=== PATIENT | female | born 1960 | race Caucasian/White ===

== ENCOUNTER 2019-06-16 12:30 | Observation (INO) ==
--- NOTE | 2019-06-16 12:46 | Emergency Department Note ---
Disposition Clinical Impression: Chest pain Qualifiers: Chest pain type: unspecified Qualified Code(s): R07.9 - Chest pain, unspecified Disposition: Admitted As Inpatient Condition: Good Time of Disposition: 15:34 General Adult HPI - General Chief complaint: ED Chest Pain Stated complaint: CP/Swelling Time Seen by Provider: 06/16/19 12:45 Source: patient Mode of arrival: ambulatory Limitations: no limitations Nursing Notes Reviewed: Yes Vital Signs Reviewed: Yes - History of Present Illness HPI Narrative: Patient is a 58-year-old female with past medical history of hypertension, hyperlipidemia, COPD, asthma who presents with chest pain and lower extremity swelling and shortness of breath. Patient reports that the symptoms began 2 months ago when her primary care provider changed her insulin medication. Says that this is when her shortness of breath started. 2 weeks ago she started having intermittent chest pain is located near her left shoulder radiates to her jaw and down her left arm. It is associated with some numbness and tingling. Symptoms worsen with exertion but do not always resolved with rest. I does not worsen with inspiration or expiration. She denies any coughing, wheezing, sputum production. Denies any nausea, vomiting, fevers, chills. Denies any history of recent travel, recent surgeries, hormone use. She has never had any blood clots before. She is not on any anticoagulation. Also mentions bilateral lower extremity swelling worse in the left compared to the right. Also endorses some calf cramping. - Related Data Home Medications Medication Instructions Recorded Confirmed Atorvastatin [Lipitor] 40 mg PO HS 06/16/19 06/16/19 Cyclobenzaprine [Flexeril] 10 mg PO BID 06/16/19 06/16/19 Levothyroxine [Synthroid] 100 mcg PO QDPC 06/16/19 06/16/19 Lisinopril [Zestril] 20 mg PO DAILY 06/16/19 06/16/19 Omeprazole [PriLOSEC] 20 mg PO DAILY 06/16/19 06/16/19 Pregabalin [Lyrica] 150 mg PO QDPC 06/16/19 06/16/19 Tramadol HCl [Ultram] 50 mg PO TID PRN 06/16/19 06/16/19 amLODIPine [Norvasc] 2.5 mg PO QDPC 06/16/19 06/16/19 Allergies Allergy/AdvReac Type Severity Reaction Status Date / Time acetaminophen [From Vicodin] AdvReac Hallucinati Verified 12/30/18 14:00 ng aspirin AdvReac See Verified 12/30/18 14:00 Comments celecoxib [From Celebrex] AdvReac Swelling Verified 12/30/18 14:00 of Lip/Tongue/Throat codeine AdvReac Anaphylaxis Verified 12/30/18 14:00 fentanyl AdvReac Vomiting Verified 12/30/18 14:00 hydrocodone [From Vicodin] AdvReac Hallucinati Verified 12/30/18 14:00 ng naproxen AdvReac See Verified 12/30/18 14:00 Comments NSAIDS (Non-Steroidal AdvReac See Verified 12/30/18 14:00 Anti-Inflamma Comments Penicillins AdvReac Rash Verified 12/30/18 14:00 All systems ED: reviewed and negative except as stated. Review of Systems: As Per HPI Constitutional: Denies: fever, chills, weakness Eyes: Denies: eye pain, eye discharge, vision change ENT ED: Denies: ear pain, throat pain, dental pain Cardiovascular: Reports: chest pain, dyspnea on exertion. Denies: palpitations, edema, syncope Respiratory: Denies: cough, dyspnea, wheezes Gastrointestinal: Denies: abdominal pain, nausea, vomiting Genitourinary: Denies: urgency, dysuria, frequency Musculoskeletal: Denies: back pain, neck pain, joint swelling Integumentary: Denies: rash, abrasion, lesions Neurological: Denies: headache, weakness, numbness Psychiatric: Denies: anxiety, depression, suicidal thoughts Endocrine: Denies: fatigue, polydipsia, polyuria Past Medical History - Past Medical History Attestation: Yes The following information was validated with the patient. Source: patient Physical Exam - General Limitations: no limitations General appearance: alert, in no apparent distress - Head Head exam: atraumatic, normocephalic, normal inspection - Eye Eye exam: Present: normal appearance, PERRL, EOMI - ENT ENT exam: normal exam, normal oropharynx, mucous membranes moist - Neck Neck exam: Present: normal inspection, full ROM, trachea midline - Chest Chest inspection: Present: normal inspection, symmetric chest wall rise - Respiratory Respiratory exam: Present: normal lung sounds bilaterally - Cardiovascular Cardiovascular exam: Present: regular rate, normal rhythm, normal heart sounds - Abdominal Exam Abdominal exam: Present: soft (Large hernia noted), Non-Tender. Absent: tenderness, distention, guarding, rebound, rigidity - Extremities Exam Extremities exam: Present: normal inspection, full ROM, pedal edema (1+ pitting edema of both extremities slightly worse in left compared to right, tender to palpation over anterior shins). Absent: tenderness - Back Exam Back exam: Present: normal inspection, full ROM. Absent: tenderness - Neurological Exam Neurological exam: Present: alert, oriented X3 - Psychiatric Psychiatric exam: Present: normal affect, normal mood - Skin Skin exam: Present: warm, dry, intact, normal color Course Course Narrative: She was seen and examined. Vitals are stable within normal limits. Exam was notable for lower extremity swelling later exam in the left compared to right. Patient was ordered CBC, CMP, troponin, BNP, chest x-ray, EKG. Patient was given 20 mg Lasix. D-dimer and bilateral DVT ultrasound was obtained. Vital Signs Temperature 98.2 F 06/16/19 12:44 Pulse Rate 85 06/16/19 12:44 Respiratory Rate 18 06/16/19 12:44 Blood Pressure 139/67 06/16/19 12:44 O2 Sat by Pulse Oximetry 100 06/16/19 12:44 Temperature 98.2 F 06/16/19 12:44 Pulse Rate 88 06/16/19 15:05 Respiratory Rate 18 06/16/19 15:05 Blood Pressure 126/71 06/16/19 15:05 O2 Sat by Pulse Oximetry 100 06/16/19 15:05 Oxygen Delivery Oxygen Delivery Room Air Medical Decision Making - [facility] Narrative Medical decision making narrative: She is a 58-year-old female who presents with chest pain and lower extremity swelling. The differential includes but is not limited to GA, ACS, DVT/PE, pneumonia, costochondritis, COPD exacerbation. Patient's initial EKG was normal with a negative troponin. This makes GA/ACS less likely. Patient also had a negative d-dimer and DVT ultrasound study making DVT/PE less likely. Chest x- ray showed no focal consolidation or interstitial infiltrates making pneumonia less likely. Plan was discussed with patient and the patient would like to be admitted for further assessment given her cardiac risk factors. She has a heart score of 4. She was communicated to the hospitalist and she was accepted for admission for chest pain rule out. - Medical Records Medical records reviewed: Yes I reviewed the patient's medical records. - Lab Data Lab results reviewed: Yes I reviewed the patient's lab results. Result diagrams: 06/16/19 12:45 06/16/19 12:45 Lab Results 06/16/19 06/16/19 06/16/19 Range/Units 12:45 12:45 12:45 WBC 6.6 (4.3-11.1) K/mcL RBC 4.36 (3.82-4.97) M/mcL Hgb 12.3 (11.5-15.4) g/dL Hct 37.1 (35.3-44.9) % MCV 85.1 (83.0-100.0) fL MCH 28.2 (28.0-33.3) pg MCHC 33.2 (31.6-35.5) g/dL RDW 14.6 H (11.5-14.5) % Plt Count 143 (140-400) K/mcL MPV 9.8 (9.4-12.4) fL D-Dimer (0-500) ng/mLFEU Sodium 143 (136-145) mEq/L Potassium 3.9 (3.5-5.1) mEq/L Chloride 106 (98-107) mEq/L Carbon Dioxide 27 (23-29) mEq/L BUN 11 (8-23) mg/dL Creatinine 0.73 (0.60-1.20) mg/dL Est GFR ( Amer) > 60 (> 60) Est GFR (Non-Af Amer) > 60 (> 60) BUN/Creatinine Ratio 15 (6-26) Glucose 100 (70-105) mg/dL Calculated Osmolality 295 (280-300) Calcium 9.5 (8.6-10.3) mg/dL Total Bilirubin 0.8 (0.3-1.0) mg/dL AST 38 (13-39) Units/L ALT 25 (7-52) Units/L Alkaline Phosphatase 129 H (34-104) Units/L Troponin I < 0.03 (< 0.04) ng/mL B-Natriuretic Peptide 30 (Less than 100) pg/mL Serum Total Protein 6.3 L (6.4-8.9) g/dL Albumin 3.5 (3.5-5.7) g/dL Globulin 2.8 (2.4-3.5) g/dL Albumin/Globulin Ratio 1.3 (1.1-2.2) 06/16/19 Range/Units 12:45 WBC (4.3-11.1) K/mcL RBC (3.82-4.97) M/mcL Hgb (11.5-15.4) g/dL Hct (35.3-44.9) % MCV (83.0-100.0) fL MCH (28.0-33.3) pg MCHC (31.6-35.5) g/dL RDW (11.5-14.5) % Plt Count (140-400) K/mcL MPV (9.4-12.4) fL D-Dimer 313 (0-500) ng/mLFEU Sodium (136-145) mEq/L Potassium (3.5-5.1) mEq/L Chloride (98-107) mEq/L Carbon Dioxide (23-29) mEq/L BUN (8-23) mg/dL Creatinine (0.60-1.20) mg/dL Est GFR ( Amer) (> 60) Est GFR (Non-Af Amer) (> 60) BUN/Creatinine Ratio (6-26) Glucose (70-105) mg/dL Calculated Osmolality (280-300) Calcium (8.6-10.3) mg/dL Total Bilirubin (0.3-1.0) mg/dL AST (13-39) Units/L ALT (7-52) Units/L Alkaline Phosphatase (34-104) Units/L Troponin I (< 0.04) ng/mL B-Natriuretic Peptide (Less than 100) pg/mL Serum Total Protein (6.4-8.9) g/dL Albumin (3.5-5.7) g/dL Globulin (2.4-3.5) g/dL Albumin/Globulin Ratio (1.1-2.2) - Radiology Data Radiology results reviewed: Yes I reviewed the patient's radiology results. Chest X-Ray 06/16/19 12:58 IMPRESSION: No acute cardiopulmonary process D/ / 06/16/2019 13:23:11 Chris Ellis MD / courtney Interpreting Provider: Chris Ellis MD - EKG Data EKG #1 EKG attestation: Yes I reviewed and interpreted this EKG. EKG results narrative: EKG obtained today showed normal sinus rhythm, normal intervals, no axis deviation, no hypertrophy, no ST elevations or depressions, no T-wave inversions. Attestation Statement - Attestation Attestation: I have seen this patient with the resident physician, I have personally evaluated this patient. I had reviewed the chart and document dictation by the resident physician and aM in agreement with the information documented by the resident physician. Please see documentation by the resident physician for complete chart including past medical history, family medical history, review of systems, current history and physical and laboratory and imaging studies. I was present for all procedures, provided direct supervision for all procedures, was present for the entirety of all procedures and provided direct guidance during the procedures. Please see documentation by the resident physician for any procedures performed. I have reviewed all interpretations of EKGs, and reviewed all EKGs performed on patient's as well. I have also reviewed reports of imaging as provided by radiology.
[2019-06-16 13:09] LABS: Hematocrit 37.1 % (35.3-44.9); Hemoglobin 12.3 g/dL (11.5-15.4); Mean Corpuscular HGB Conc 33.2 g/dL (31.6-35.5); Mean Corpuscular Hemoglobin 28.2 pg (28.0-33.3); Mean Corpuscular Volume 85.1 fL (83.0-100.0); Mean Platelet Volume 9.8 fL (9.4-12.4); Platelet Count 143 K/mcL (140-400); Red Blood Count 4.36 M/mcL (3.82-4.97); Red Cell Distribution Width 14.6 % (11.5-14.5); White Blood Count 6.6 K/mcL (4.3-11.1)
[2019-06-16] MEDS ORDERED: Nitroglycerin 0.4 MG TAB.SUBL SL ONE (13:19)
[2019-06-16] MEDS ORDERED: Furosemide 40 MG TABLET PO ONE (13:29)
--- NOTE | 2019-06-16 13:33 | Emergency Department Note ---
Disposition Clinical Impression: Chest pain Disposition: Still a Patient Condition: Fair Forms: ED Satisfaction Letter Time of Disposition: 13:33 Chest Pain HPI - General Chief Complaint: ED Chest Pain Stated Complaint: CP/Swelling Time Seen by Provider: 06/16/19 12:45 Source: patient Mode of arrival: ambulatory Limitations: no limitations - History of Present Illness Severity scale (1-10): 8 - Related Data Allergies Allergy/AdvReac Type Severity Reaction Status Date / Time acetaminophen [From Vicodin] AdvReac Hallucinati Verified 12/30/18 14:00 ng aspirin AdvReac See Verified 12/30/18 14:00 Comments celecoxib [From Celebrex] AdvReac Swelling Verified 12/30/18 14:00 of Lip/Tongue/Throat codeine AdvReac Anaphylaxis Verified 12/30/18 14:00 fentanyl AdvReac Vomiting Verified 12/30/18 14:00 hydrocodone [From Vicodin] AdvReac Hallucinati Verified 12/30/18 14:00 ng naproxen AdvReac See Verified 12/30/18 14:00 Comments NSAIDS (Non-Steroidal AdvReac See Verified 12/30/18 14:00 Anti-Inflamma Comments Penicillins AdvReac Rash Verified 12/30/18 14:00 Constitutional: Denies: fever, chills, weakness Eyes: Denies: eye pain, eye discharge, vision change ENT ED: Denies: ear pain, throat pain, dental pain Cardiovascular: Reports: chest pain, dyspnea on exertion. Denies: palpitations, edema, syncope Respiratory: Denies: cough, dyspnea, wheezes Gastrointestinal: Denies: abdominal pain, nausea, vomiting Genitourinary: Denies: urgency, dysuria, frequency Musculoskeletal: Denies: back pain, neck pain, joint swelling Integumentary: Denies: rash, abrasion, lesions Neurological: Denies: headache, weakness, numbness Psychiatric: Denies: anxiety, depression, suicidal thoughts Endocrine: Denies: fatigue, polydipsia, polyuria Chest Pain PMH - Past Medical History Medical history: Reports: arthritis, asthma, CHF, COPD, diabetes, h yperlipidemia, hypertension, RA, thyroid disease - Social History Smoking Status: Former smoker Alcohol use: Reports: none Drug use: Reports: none Physical Exam - General Limitations: no limitations General appearance: alert, in no apparent distress Course Vital Signs Temperature 98.2 F 06/16/19 12:44 Pulse Rate 85 06/16/19 12:44 Respiratory Rate 18 06/16/19 12:44 Blood Pressure 139/67 06/16/19 12:44 O2 Sat by Pulse Oximetry 100 06/16/19 12:44 Temperature 98.2 F 06/16/19 12:44 Pulse Rate 85 06/16/19 12:44 Respiratory Rate 18 06/16/19 12:44 Blood Pressure 139/67 06/16/19 12:44 O2 Sat by Pulse Oximetry 100 06/16/19 13:11 Oxygen Delivery Oxygen Delivery Room Air Chest Pain - Lab Data Result diagrams: 06/16/19 12:45 Lab Results 06/16/19 Range/Units 12:45 WBC 6.6 (4.3-11.1) K/mcL RBC 4.36 (3.82-4.97) M/mcL Hgb 12.3 (11.5-15.4) g/dL Hct 37.1 (35.3-44.9) % MCV 85.1 (83.0-100.0) fL MCH 28.2 (28.0-33.3) pg MCHC 33.2 (31.6-35.5) g/dL RDW 14.6 H (11.5-14.5) % Plt Count 143 (140-400) K/mcL MPV 9.8 (9.4-12.4) fL Heart Score - Score History: Moderately Suspicious EKG: Normal Age: 45-65 Risk Factors: Equal/Greater than 3 risk factor or history of atherosclerotic disease Troponin: Less than normal limit HEART Score Total: 4 Attestation Statement - Attestation Attestation: I have seen this patient with the resident physician, I have personally evaluated this patient. I had reviewed the chart and document dictation by the resident physician and aM in agreement with the information documented by the resident physician. Please see documentation by the resident physician for complete chart including past medical history, family medical history, review of systems, current history and physical and laboratory and imaging studies. I was present for all procedures, provided direct supervision for all procedures, was present for the entirety of all procedures and provided direct guidance during the procedures. Please see documentation by the resident physician for any procedures performed. I have reviewed all interpretations of EKGs, and reviewed all EKGs performed on patient's as well. I have also reviewed reports of imaging as provided by radiology. Patient presents emergency Department with chief complaint of progressing Byron of exertional chest pain shortness of breath left jaw pain and left shoulder pain. Patient states that she has had increasing symptoms over the last couple months she attributes this to being started on a new insulin and on trulicity. Patient states that she has had some increased bilateral lower extremity edema. She denies any headache or posterior neck pain. She denies any fevers chills cough sputum production. Patient denies any numbness or weakness. She states her symptoms are exertional and anytime she gets up and even walks across the room she starts to develop left-sided jaw pain and shoulder pain chest pain shortness of breath. She states all of these episodes of increasing since being started on these medications, she reports having developed congestive heart failure in the past related to different medications and she states that this reminds her when she started having problems with conge stive heart failure she reports she had a cardiac catheterization 5 years ago which was normal and does not have a history of coronary artery disease but no cardiac workup over the last 5 years. She has a history of diabetes high cholesterol hypertension and the prior congestive heart failure. She denies fevers chills cough sputum production abdominal pain black or bloody stool diarrhea urinary changes or other concerns. She does report that the swelling in her legs goes down when she elevates it and rest but comes back most immediately after being up and walking around for short periods of time. EKG is normal sinus rhythm with no evidence of ischemia or dysrhythmia or hyperkalemia. Normal interval no evidence of Wellens syndrome or Brugada pattern. Basic laboratory studies were ordered she is currently not having any chest pain at rest, states that she does not feel she needs anything on exam oropharynx is normal lungs are clear heart is regular no JVD no carotid bruits abdomen soft nontender there is 1+ bilateral lower extremity pitting edema, no significant evidence of unilateral swelling, left side may be slightly greater than the right, no warmth or erythema no Homans sign, there is some diffuse mild tenderness of the bilateral soft tissues of the lower extremities, no evidence of superinfection. Normal distal pulses and normal capillary refill normal te mperature of the bilateral lower extremities. Patient has a heart score of minimum four, potentially even 5, with multiple risk factors, with progressive exertional symptoms with no recent cardiac ev aluation she will be admitted to the hospital for further evaluation and management.
[2019-06-16 13:54] LABS: Alanine Aminotransferase 25 Units/L (7-52); Albumin 3.5 g/dL (3.5-5.7); Albumin/Globulin Ratio 1.3 (1.1-2.2); Alkaline Phosphatase 129 Units/L (34-104); Aspartate Amino Transferase 38 Units/L (13-39); BUN/Creatinine Ratio 15 (6-26); Bilirubin,Total 0.8 mg/dL (0.3-1.0); Blood Urea Nitrogen 11 mg/dL (8-23); Calcium 9.5 mg/dL (8.6-10.3); Carbon Dioxide 27 mEq/L (23-29); Chloride 106 mEq/L (98-107); Globulin 2.8 g/dL (2.4-3.5); Glucose 100 mg/dL (70-105); Osmolality,Calculated 295 (280-300); Potassium 3.9 mEq/L (3.5-5.1); Sodium 143 mEq/L (136-145); Total Protein 6.3 g/dL (6.4-8.9); Troponin I < 0.03 ng/mL (< 0.04); eGFR For African Americans > 60 (> 60); eGFR For Non-African Americans > 60 (> 60)
[2019-06-16] MEDS ORDERED: Ondansetron ODT 4 MG TAB.RAPDIS SL PRN (17:04)
[2019-06-16] MEDS ORDERED: Naloxone 0.4 MG/ML INJ IVP PRN (17:04)
[2019-06-16] MEDS ORDERED: Nitroglycerin 0.4 MG TAB.SUBL SL PRN (17:23)
[2019-06-16] MEDS ORDERED: Dextrose Gel 15 GM/37.5 ML TUBE PO PRN ×2 (17:25)
[2019-06-16] MEDS ORDERED: *HR* Dextrose 50 % in Water (Syg) 50 ML SYRINGE IVP PRN (17:25)
[2019-06-16] MEDS ORDERED: D5% in Water 1,000 ML IVC PRN (17:25)
--- NOTE | 2019-06-16 17:36 | Internal Med History&Physical ---
Date of Encounter: 06/16/19 Time of Encounter: 17:30 Internal Medicine - H&P: HPI Chief complaint: cp Admitted From: Emergency Dept Plans for Post Hospital Care: Home History of present illness: Ms. Baez is a 58 year old female past medical history of COPD JULIETTE not using CPAP hyperthyroid hypertension CHF rheumatoid arthritis diabetes angina- according to the patient she has been experiencing lower extremity swelling shortness of breath on exertion that began approximately 2 months ago when her primary care provider changed her insulin medication-placed on trulicity For the past 2 weeks patient has also been experiencing intermittent left-sided chest pain which she describes as sharp heaviness radiating to her left jawline as well as her left arm. Pain is aggravated with exertion and relieved with rest. Patient does state that she has been experiencing approximately 10 pound weight gain over the past month. Denies any orthopnea she presented to [facility] ED with the above complaints. Lab work was unremarkable troponin was negative EKG with no ischemic changes chest x-ray with no acute pulmonary process. Patient was given 1 dose of IV Lasix in the ER and she has been admitted for further workup and evaluation. Currently patient denies any chest pain or shortness of breath she is hemodynamically stable at this time Past Med Surg Social Fam HX - Past Medical History Medical history: arthritis, asthma, CHF, COPD, diabetes, hyperlipidemia, hypertension, RA, thyroid disease - Past Surgical History Additional surgical history: hernia repair, spinal surgery - Social History Smoking Status: Former smoker Alcohol use: none Drug use: none - Family History Mother Living Status: Hx Family Cardiac Disorders: Yes (CAD) Hx Family Endocrine Disorder: Yes (Thyroid disease) Brother Living Status: Still Living Hx Family Genitourinary Disorders: Yes (CKD) Internal Medicine - H&P: Meds Atorvastatin [Lipitor] 40 mg PO HS 06/16/19 [History] Cyclobenzaprine [Flexeril] 10 mg PO BID 06/16/19 [History] Levothyroxine [Synthroid] 100 mcg PO QDPC 06/16/19 [History] Lisinopril [Zestril] 20 mg PO DAILY 06/16/19 [History] Omeprazole [PriLOSEC] 20 mg PO DAILY 06/16/19 [History] Pregabalin [Lyrica] 150 mg PO QDPC 06/16/19 [History] Tramadol HCl [Ultram] 50 mg PO TID PRN 06/16/19 [History] amLODIPine [Norvasc] 2.5 mg PO QDPC 06/16/19 [History] Allergy/AdvReac Type Severity Reaction Status Date / Time acetaminophen [From Vicodin] AdvReac Hallucinati Verified 12/30/18 14:00 ng aspirin AdvReac See Verified 12/30/18 14:00 Comments celecoxib [From Celebrex] AdvReac Swelling Verified 12/30/18 14:00 of Lip/Tongue/Throat codeine AdvReac Anaphylaxis Verified 12/30/18 14:00 fentanyl AdvReac Vomiting Verified 12/30/18 14:00 hydrocodone [From Vicodin] AdvReac Hallucinati Verified 12/30/18 14:00 ng naproxen AdvReac See Verified 12/30/18 14:00 Comments NSAIDS (Non-Steroidal AdvReac See Verified 12/30/18 14:00 Anti-Inflamma Comments Penicillins AdvReac Rash Verified 12/30/18 14:00 All Systems PM: A 10-system review of systems was performed and is negative for pertinent findings except as documented above in the HPI. - Constitutional Constitutional: weight gain - EENT Eyes: no change in vision, no discharge, no pain, no photophobia Ears: no ear discharge, no ear pain, no tinnitus Nose, mouth and throat: no dysphagia, no nasal discharge, no neck pain, no sore throat - Cardiovascular Cardiovascular ROS IM: chest pain, dyspnea on exertion, edema - Respiratory Respiratory: dyspnea on exertion - Gastrointestinal Gastrointestinal: no abdominal pain, no diarrhea, no hematemesis, no hematochezia, no melena, no nausea, no vomiting - Genitourinary Genitourinary: no change in urinary stream, no dysuria, no flank pain, no hematuria - Musculoskeletal Musculoskeletal ROS IM: no numbness, no tingling - Integumentary Integumentary IM: no rash, no unusual bruising - Neurological Neurological ROS: no confusion, no convulsions, no focal weakness, no numbness, no tingling, no tremor(s) - Hematologic/Lymphatic Hematologic/Lymphatic: no easy bruising - Constitutional Vitals: Temp Pulse Resp BP Pulse Ox 97.8 F 95 14 134/77 95 06/16/19 16:50 06/16/19 16:50 06/16/19 16:50 06/16/19 16:50 06/16/19 16:50 General appearance: Present: A&O X 3 Exam: . - Head Head exam: Present: atraumatic, normocephalic - Eye Eye exam: Present: PERRL, conjuntiva pink, sclera anicteric Pupils: Present: PERRL - Neck Neck exam general surgery: Present: supple, trachea midline. Absent: lymphadenopathy - Respiratory Respiratory exam: Present: CTAB. Absent: accessory muscle use, rales, rhonchi, wheezes - Cardiovascular Cardiovascular exam: Present: RRR, +S1, +S2. Absent: diastolic murmur, gallop, rubs, systolic murmur - GI/Abdominal GI/Abdominal exam: Present: hernia, normal bowel sounds, soft, no peritoneal signs. Absent: distended, tenderness - Extremities Exam Extremities exam: Present: pedal edema, warm, radial pulses palpable and symmetrical. Absent: calf tenderness, cyanotic - Neurological Exam Neurological exam: Present: CN II-XII intact, oriented X3, no focal deficits. Absent: pronater drift, facial droop, speech deficit - Skin Skin exam: Present: dry, intact Internal Med - H&P Results - Labs CBC & Chem 7: 06/16/19 12:45 06/16/19 12:45 Labs: Short CBC 06/16/19 Range/Units 12:45 WBC 6.6 (4.3-11.1) K/mcL Hgb 12.3 (11.5-15.4) g/dL Hct 37.1 (35.3-44.9) % Plt Count 143 (140-400) K/mcL BMP 06/16/19 12:45 Sodium 143 Potassium 3.9 Chloride 106 Carbon Dioxide 27 BUN 11 Creatinine 0.73 Glucose 100 Calcium 9.5 Cardiac Enzymes 06/16/19 Range/Units 12:45 Troponin I < 0.03 (< 0.04) ng/mL Liver Function 06/16/19 Range/Units 12:45 Total Bilirubin 0.8 (0.3-1.0) mg/dL AST 38 (13-39) Units/L ALT 25 (7-52) Units/L Alkaline Phosphatase 129 H (34-104) Units/L Albumin 3.5 (3.5-5.7) g/dL - EKG Data EKG shows normal: sinus rhythm - Impressions ITS Impressions Chest X-Ray 06/16/19 12:58 IMPRESSION: No acute cardiopulmonary process D/ / 06/16/2019 13:23:11 Chris Ellis MD / [facility] Interpreting Provider: Chris Ellis MD - Diagnostic Studies Chest x-ray Additional comments: Chest X-Ray 06/16/19 12:58 IMPRESSION: No acute cardiopulmonary process D/ / 06/16/2019 13:23:11 Chris Ellis MD / [facility] Interpreting Provider: Chris Ellis MD - Assessment and Plan (1) Chest pain Current Visit: Yes Status: Acute Assessment and plan: Patient has been experiencing shortness of breath on exertion has been occurring for the past 2 months as well as lower extremity swelling over the past month with 10 pound weight gain. Over the past few weeks she has been experiencing intermittent chest pain occurring on exertion describing it as sharp heaviness radiating to left jaw and left arm aggravated with exertion and relieved with rest. Patient states her last cardiac workup with approximate 5-6 years ago she did have a cardiac catheterization as well as cardiac stress test which was negative according to the patient with no stent placement. Initial troponin was negative we will continue to trend troponins Continuous cardiac monitoring Cardiac echo Patient is allergic to aspirin check lipid panel continue with statin continue with lisinopril- Make patient nothing by mouth after midnight and undergo cardiac stress test in a.m. Qualifiers: Chest pain type: unspecified Qualified Code(s): R07.9 - Chest pain, unspecified (2) Hypothyroid Current Visit: Yes Status: Acute Assessment and plan: Check TSH continue with Synthroid Qualifiers: Hypothyroidism type: unspecified Qualified Code(s): E03.9 - Hypothyroidism, unspecified (3) Diabetes Current Visit: Yes Status: Acute Assessment and plan: Patient was recently started on trulicity which she thinks has been causing her lower extremity swelling we will hold all medications and place on sliding scale insulin with Accu-Cheks before meals at bedtime Qualifiers: Diabetes mellitus type: type 2 Diabetes mellitus terminal operations supervisor insulin use: with detention use Diabetes mellitus complication status: with neurologic complications Diabetes mellitus complication detail: with unspecified neuropathy Qualified Code(s): E11.40 - Type 2 diabetes mellitus with diabetic neuropathy, unspecified; Z79.4 - longterm (current) use of insulin (4) Hypertension Current Visit: No Status: Chronic Assessment and plan: Patient is on amlodipine as well as lisinopril-amlodipine may be contributing to her lower extremity swelling Qualifiers: Hypertension type: unspecified Qualified Code(s): I10 - Essential (primary) hypertension (5) COPD (chronic obstructive pulmonary disease) Current Visit: No Status: Chronic Assessment and plan: Appears to be stable at this time bronchodilators as needed Qualifiers: COPD type: unspecified COPD Qualified Code(s): J44.9 - Chronic obstructive pulmonary disease, unspecified - Time Spent With Patient Total time spent is greater than 50% in coordination of care (as documented) at patient's floor/unit and/or counseling patient:
[2019-06-16] MEDS: traMADol 50 MG TABLET PO PRN (20:32)
[2019-06-16] MEDS: Insulin LISPRO 300 UNITS/3 ML VIAL SQ SCH (20:32)
[2019-06-16] MEDS ORDERED: Perflutren Lipid Microsphere 1.3 ML in 0.9 % Sodium Chloride 8.7 ML IVP ONE (21:42)
[2019-06-16] MEDS ORDERED: *HR* OxyCODONE/APAP 5/325 TABLET PO ONE (22:17)
[2019-06-17 02:59] LABS: Basophils % 0.5 %; Eosinophils # 0.4 K/mcL (0.0-0.6); Eosinophils % 5.7 %; Hematocrit 34.5 % (35.3-44.9); Hemoglobin 11.4 g/dL (11.5-15.4); Immature Granulocytes % 0.3 % (0-4); Lymphocytes # 1.9 K/mcL (0.6-4.6); Lymphocytes % 29.1 %; Mean Corpuscular Hemoglobin 28.2 pg (28.0-33.3); Mean Corpuscular Volume 85.4 fL (83.0-100.0); Mean Platelet Volume 10.2 fL (9.4-12.4); Monocytes # 0.7 K/mcL (0.0-1.3); Monocytes % 10.2 %; Neutrophils # 3.6 K/mcL (1.6-8.9); Platelet Count 143 K/mcL (140-400); Red Blood Count 4.04 M/mcL (3.82-4.97); Red Cell Distribution Width 14.6 % (11.5-14.5); Segmented Neutrophils % 54.2 %; White Blood Count 6.6 K/mcL (4.3-11.1)
[2019-06-17 03:17] LABS: BUN/Creatinine Ratio 17 (6-26); Blood Urea Nitrogen 14 mg/dL (8-23); Carbon Dioxide 27 mEq/L (23-29); Chloride 106 mEq/L (98-107); Chol/HDL Ratio 3.4 (0-4.9); Cholesterol 104 mg/dL (< 200); Glucose 171 mg/dL (70-105); HDL Cholesterol 31 mg/dL (40-59); LDL Cholesterol,Calculated 47 mg/dL (0-99); Magnesium 1.9 mg/dL (1.6-2.6); Osmolality,Calculated 295 (280-300); Potassium 3.7 mEq/L (3.5-5.1); Sodium 140 mEq/L (136-145); Triglycerides 128 mg/dL (< 150); eGFR For African Americans > 60 (> 60); eGFR For Non-African Americans > 60 (> 60)
[2019-06-17] MEDS ORDERED: Regadenoson 0.4 MG/5 ML SYRINGE IVP ONE (06:19)
[2019-06-17] MEDS: Insulin LISPRO 300 UNITS/3 ML VIAL SQ SCH ×5 (09:39→20:33)
[2019-06-17] MEDS: Pregabalin 75 MG CAPSULE PO SCH (10:07)
[2019-06-17] MEDS: Lisinopril 20 MG TABLET PO SCH (10:07)
--- NOTE | 2019-06-17 13:11 | Cardiology Consult Note ---
<Alirio Lynch - Last Filed: 06/17/19 13:03> Date of Encounter: 06/17/19 Time of Encounter: 13:03 Assessment and Plan (1) Abnormal stress test Current Visit: Yes Status: Acute Patient presents with typical anginal symptoms. Mild ischemia seen in the apical, mid basal, and inferio septum. SDS 3. EF 70%. TTE shows preserved EF. No significant valvular disease. LHC vs medical management discussed. Pt notes allergy NSAID but has not noted direct allergy to asa. I will discuss further with Dr. Ayers. Continue statin and bb. Order records from [facility]. (2) Chest pain Current Visit: Yes Status: Acute See plan above. Qualifiers: Chest pain type: unspecified Qualified Code(s): R07.9 - Chest pain, unspecified Discussion w patient/family: The assessment and plan as outlined above was discussed with the patient and/or family members who expressed understanding and agreement. All questions were answered. Thank you for involving us in the care of your patient. Please call with any questions. History of Present Illness Consult date: 06/17/19 Requesting physician: Carlota Friend Consult reason: Abnormal stress test Chief complaint: SOB, edema, jaw pain History of present illness: Ms. Conroy is a 58 year old female with past medical history of DM type II, HTN, obesity who presents with c/o SOB, BLE edema for two months. She also c/o Jaw p ain and left shoulder pain that occurs with exertion for the past 4 weeks. She feels that her symptoms started after she was started on trulicity for her diabetes. She notes similar symptoms in the past when starting new medications. Cardiology consulted today for abnormal stress test. She denies history of CAD. Reports having LHC five years ago at [facility] that showed "clean arteries". Allergy to asa noted. Pt states allergy is due to hives and mild SOB with multiple NSAIDS not directly aspirin. Past Med Surg Social Fam HX - Past Medical History Medical history: arthritis, asthma, CHF, COPD, diabetes, hyperlipidemia, hypertension, RA, thyroid disease - Past Surgical History Additional surgical history: hernia repair, spinal surgery - Social History Smoking Status: Former smoker Alcohol use: none Drug use: none - Family History Mother Living Status: Hx Family Cardiac Disorders: Yes (CAD) Hx Family Endocrine Disorder: Yes (Thyroid disease) Brother Living Status: Still Living Hx Family Genitourinary Disorders: Yes (CKD) Medications and Allergies Atorvastatin [Lipitor] 40 mg PO HS 06/16/19 [History] Cyclobenzaprine [Flexeril] 10 mg PO BID PRN 06/16/19 [History] Levothyroxine [Synthroid] 100 mcg PO QAM 06/16/19 [History] Lisinopril [Zestril] 20 mg PO DAILY 06/16/19 [History] Omeprazole [PriLOSEC] 20 mg PO DAILY 06/16/19 [History] Pregabalin [Lyrica] 150 mg PO BID 06/16/19 [History] Tramadol HCl [Ultram] 50 mg PO TID PRN 06/16/19 [History] Amlodipine Besylate 2.5 mg PO DAILY 06/17/19 [History] Dulaglutide [Trulicity] 0.75 mg SQ FR 06/17/19 [History] Insulin Regular, Human [Humulin R U-500 Kwikpen] 100 units SQ BIDWM 06/17/19 [History] Turmeric Root Extract [Turmeric] 500 mg PO DAILY 06/17/19 [History] Allergy/AdvReac Type Severity Reaction Status Date / Time aspirin AdvReac See Verified 06/17/19 14:44 Comments celecoxib [From Celebrex] AdvReac Swelling Verified 06/17/19 14:44 of Lip/Tongue/Throat codeine AdvReac Anaphylaxis Verified 06/17/19 14:44 fentanyl AdvReac Vomiting Verified 06/17/19 14:44 hydrocodone [From Vicodin] AdvReac Hallucinati Verified 06/17/19 14:44 ng morphine AdvReac Hallucinati Verified 06/17/19 14:44 ng naproxen AdvReac See Verified 06/17/19 14:44 Comments NSAIDS (Non-Steroidal AdvReac Anaphylaxis Verified 06/17/19 14:44 Anti-Inflamma Penicillins AdvReac Rash Verified 06/17/19 14:44 All Systems Review: The remainder of the systems were reviewed and are negative Physical Examination Vital Signs, Last 4 Hours Temp Pulse Resp BP Pulse Ox 06/17/19 10:35 98.8 F 82 18 118/73 97 General: Conversant, No Apparent Distress HEENT: Atraumatic, Normocephaly, Mucus Membranes Moist Neck: No JVD, Normal carotid pulses Cardiac: Reg Rate and Rhythm, Normal S1 and S2, No Murmur Lungs: Normal Breath Sounds, No Wheeze, Rales, Rhonchi Neuro: Alert and responsive, No focal deficits noted Abdomen: Soft, Non-Tender Skin: No rashes noted on visualized skin Musculoskeletal: No Chest Wall Tenderness Extremities: No Clubbing, No Cyanosis, No Edema, Normal Pulses Results 06/17/19 01:24 06/17/19 01:24 Lab Results 06/16/19 06/16/19 06/16/19 12:45 12:45 12:45 WBC 6.6 Hgb 12.3 Hct 37.1 Plt Count 143 D-Dimer Sodium 143 Potassium 3.9 Chloride 106 Carbon Dioxide 27 BUN 11 Creatinine 0.73 Glucose 100 Calcium 9.5 Magnesium Total Bilirubin 0.8 AST 38 ALT 25 Alkaline Phosphatase 129 H Troponin I < 0.03 B-Natriuretic Peptide 30 TSH 06/16/19 06/16/19 06/17/19 12:45 17:54 01:24 WBC Hgb Hct Plt Count D-Dimer 313 Sodium Potassium Chloride Carbon Dioxide BUN Creatinine Glucose Calcium Magnesium Total Bilirubin AST ALT Alkaline Phosphatase Troponin I < 0.03 < 0.03 B-Natriuretic Peptide TSH 06/17/19 06/17/19 06/17/19 01:24 01:24 01:24 WBC 6.6 Hgb 11.4 L Hct 34.5 L Plt Count 143 D-Dimer Sodium 140 Potassium 3.7 Chloride 106 Carbon Dioxide 27 BUN 14 Creatinine 0.82 Glucose 171 H Calcium 9.0 Magnesium 1.9 Total Bilirubin AST ALT Alkaline Phosphatase Troponin I B-Natriuretic Peptide TSH 3.297 - Imaging and Cardiology Stress Test: report reviewed Echo: report reviewed - EKG Interpretation EKG results cardiology: personally reviewed Consult Discharge Plan - Plan Referrals: Rae Baez CNP [Primary Care Provider] - 06/21/19 9:15 am <Alfredo Ayers - Last Filed: 06/17/19 14:52> Date of Encounter: 06/17/19 - Attending Attestation I have personally performed a face to face evaluation on this patient. I have reviewed and agree with the care plan. History and Exam by me shows: 58-year-old female with multiple cardiac risk factors including diabetes with hemoglobin A1c of 12 presents with exertional shortness of breath. Chemical stress test was obtained showed some abnormalities with reversible ischemia and hence LHC was discussed in detail. Risks benefits and alternatives were discussed patient and she agrees to proceed Assessment and Plan Discussion w patient/family: The assessment and plan as outlined above was discussed with the patient and/or family members who expressed understanding and agreement. All questions were answered. Thank you for involving us in the care of your patient. Please call with any questions. History of Present Illness History of present illness: Ms. Baez is a 58 year old female All Systems Review: The remainder of the systems were reviewed and are negative Results 06/17/19 01:24 06/17/19 01:24 Lab Results 06/16/19 06/17/19 06/17/19 17:54 01:24 01:24 WBC 6.6 Hgb 11.4 L Hct 34.5 L Plt Count 143 Sodium Potassium Chloride Carbon Dioxide BUN Creatinine Glucose Calcium Magnesium Troponin I < 0.03 < 0.03 TSH 06/17/19 06/17/19 01:24 01:24 WBC Hgb Hct Plt Count Sodium 140 Potassium 3.7 Chloride 106 Carbon Dioxide 27 BUN 14 Creatinine 0.82 Glucose 171 H Calcium 9.0 Magnesium 1.9 Troponin I TSH 3.297
--- NOTE | 2019-06-17 13:49 | Internal Med Progress Note ---
Hospitalist Progress Note - Encounter Date of Encounter: 06/17/19 Time of Encounter: 13:47 - Subjective Interval History: Patient was seen and examined at bedside. Patient underwent cardiac stress test this a.m. which did reveal a mild apical anterior mid basal inferoseptal ischemia on perfusion study no infarct on perfusion study. Cardiology was consu lted discussed treatment plan with the patient who verbalized understanding - Exam Vitals: Temp Pulse Resp BP Pulse Ox 98.8 F 82 18 118/73 97 06/17/19 10:35 06/17/19 10:35 06/17/19 10:35 06/17/19 10:35 06/17/19 10:35 Exam: Skin: Free of rash and discoloration. Eyes: Sclera is white. There is no discharge from eyes. ENMT: Oral/pharyngeal mucosa is normal in appearance. There is no discharge from nose or ears. Respiratory: Normal breath sounds with no crackles and wheezes bilaterally. CV: Heart is regular with no gallop or murmur. GI: Abdomen is flat and soft with no palpable mass or visceromegaly. : There is no tenderness in patient's flanks bilaterally. Neuro exam: He has good strength in upper and lower extremities. He has normal eye movements. Psychiatric: He has normal affect. His thought process is appropriate to the situation. - Assessment and Plan (1) Chest pain Current Visit: Yes Status: Acute Assessment and Plan: Patient has been experiencing shortness of breath on exertion has been occurring for the past 2 months as well as lower extremity swelling over the past month with 10 pound weight gain. Over the past few weeks she has been experiencing intermittent chest pain occurring on exertion describing it as sharp heaviness radiating to left jaw and left arm aggravated with exertion and relieved with rest. Patient states her last cardiac workup with approximate 5-6 years ago she did have a cardiac catheterization as well as cardiac stress test which was negative according to the patient with no stent placement. Initial troponin was negative we will continue to trend troponins Continuous cardiac monitoring Cardiac echo Patient is allergic to aspirin check lipid panel continue with statin continue with lisinopril- Make patient nothing by mouth after midnight and undergo cardiac stress test in a.m. 06/17 Patient underwent cardiac stress test Impression: Mild apical anterior and mid-basal inferoseptal ischemia on perfusion study (reversible apical anterior and mid-basal inferoseptal perfusion defect of small size and mild intensity, SDS = 3) . No infarct on perfusion study. Stress LVEF >70%. Pharmacologic stress ECG non-diagnostic for ischemia. Moderate left arm/jaw pain during stress. Low risk study. Cardiology has been consulted Cardiac catheter versus medical management Cardiac echo shows preserved EF no significant valvular disease (2) Hypothyroid Current Visit: Yes Status: Acute Assessment and Plan: continue with Synthroid TSH within normal limits (3) Diabetes Current Visit: Yes Status: Acute Assessment and Plan: Patient was recently started on trulicity which she thinks has been causing her lower extremity swelling we will hold all medications and place on sliding scale insulin with Accu-Cheks before meals at bedtime 06/17 Continue with Accu-Cheks before meals at bedtime with sliding scale insulin (4) Hypertension Current Visit: No Status: Chronic Assessment and Plan: Patient is on amlodipine as well as lisinopril-amlodipine may be contributing to her lower extremity swelling (5) COPD (chronic obstructive pulmonary disease) Current Visit: No Status: Chronic Assessment and Plan: Appears to be stable at this time bronchodilators as needed (6) Lower extremity edema Current Visit: Yes Status: Acute Assessment and Plan: 1 does not appear to be edematous today does not appear to be in fluid overload chest x-ray nothing acute BMP within normal limits no DVT noted bilaterally per vascular Doppler -Patient did receive 1 dose of Lasix in the ER Cardiac echo does show preserved EF Patient is on amlodipine which may be contributing to her edema-patient thinks that her insulin is causing her lower extremity swelling-we will continue to monitor - Time Spent with Patient Total time spent is greater than 50% in coordination of care (as documented) at patient's floor/unit and/or counseling patient: Internal Medicine: Result - Labs CBC & Chem 7: 06/17/19 01:24 06/17/19 01:24 Labs: Short CBC 06/17/19 Range/Units 01:24 WBC 6.6 (4.3-11.1) K/mcL Hgb 11.4 L (11.5-15.4) g/dL Hct 34.5 L (35.3-44.9) % Plt Count 143 (140-400) K/mcL Neutrophils # 3.6 (1.6-8.9) K/mcL BMP 06/16/19 06/17/19 12:45 01:24 Sodium 143 140 Potassium 3.9 3.7 Chloride 106 106 Carbon Dioxide 27 27 BUN 11 14 Creatinine 0.73 0.82 Glucose 100 171 H Calcium 9.5 9.0 Cardiac Enzymes 06/16/19 06/16/19 06/17/19 Range/Units 12:45 17:54 01:24 Troponin I < 0.03 < 0.03 < 0.03 (< 0.04) ng/mL Liver Function 06/16/19 Range/Units 12:45 Total Bilirubin 0.8 (0.3-1.0) mg/dL AST 38 (13-39) Units/L ALT 25 (7-52) Units/L Alkaline Phosphatase 129 H (34-104) Units/L Albumin 3.5 (3.5-5.7) g/dL - ABG Interpretation ABG results: PT/INR, D-dimer D-Dimer 313 ng/mLFEU (0-500) 06/16/19 12:45 - Impressions Impressions Chest X-Ray 06/16/19 12:58 IMPRESSION: No acute cardiopulmonary process D/ / 06/16/2019 13:23:11 Chris Ellis MD / [facility] Interpreting Provider: Chris Ellis MD Echocardiogram 06/16/19 17:07 Impressions: LVEF 65-70%. Mild left ventricular diastolic dysfunction. Normal right ventricular structure and function. No significant valvular dysfunction. No evidence of pulmonary hypertension. Left Ventricular Wall Motion: Rest Echo Findings All wall segments showed normal motion. Findings: Study Quality * Technically adequate exam. ECG Findings * Normal sinus rhythm. Left Ventricle * LVEF 65-70%. * Normal LV chamber size, wall thickness and systolic function. * Mild left ventricular diastolic dysfunction. * Definity echo contrast was used. Right Ventricle * Normal right ventricular structure and function. Left Atrium * Normal left atrial size. Right Atrium * Normal right atrial size. Interatrial Septum * Interatrial septum not well evaluated. * No evidence of PFO by color Doppler. Aortic Valve * Aortic valve not well visualized. * No aortic stenosis. * No aortic regurgitation. Mitral Valve * Normal mitral valve structure. * No mitral stenosis. * Trace mitral regurgitation. Tricuspid Valve * Normal tricuspid valve structure. * No tricuspid stenosis. * No tricuspid regurgitation. * Unable to estimate RVSP due to lack of TR jet. * No evidence of pulmonary hypertension. * Estimated RA pressure is 3 mmHg. Pulmonic Valve * Pulmonic valve is not well visualized. * No pulmonic stenosis. * No pulmonic regurgitation. Aorta * Normally sized aortic root. Pericardium * The pericardium appears normal. IVC * The IVC is not dilated. * > 50% respiratory change Consult Discharge Plan - Plan Referrals: Rae Baez CNP [Primary Care Provider] - 06/21/19 9:15 am (1) Chest pain Qualifiers: Chest pain type: unspecified Qualified Code(s): R07.9 - Chest pain, unspecified (2) Hypothyroid Qualifiers: Hypothyroidism type: unspecified Qualified Code(s): E03.9 - Hypothyroidism, unspecified (3) Diabetes Qualifiers: Diabetes mellitus type: type 2 Diabetes mellitus senior living insulin use: with senior living use Diabetes mellitus complication status: with neurologic complications Diabetes mellitus complication detail: with unspecified neuropathy Qualified Code(s): E11.40 - Type 2 diabetes mellitus with diabetic neuropathy, unspecified; Z79.4 - snf (current) use of insulin (4) Hypertension Qualifiers: Hypertension type: unspecified Qualified Code(s): I10 - Essential (primary) hypertension (5) COPD (chronic obstructive pulmonary disease) Qualifiers: COPD type: unspecified COPD Qualified Code(s): J44.9 - Chronic obstructive pulmonary disease, unspecified
[2019-06-17] MEDS: traMADol 50 MG TABLET PO PRN (15:31)
[2019-06-18] MEDS: Insulin LISPRO 300 UNITS/3 ML VIAL SQ SCH ×2 (07:58→11:43)
--- NOTE | 2019-06-18 08:53 | Pre-Sedation Evaluation ---
Pre-sedation evaluation - Pre-sedation checklist Date of procedure: 06/18/19 Procedure: heart cath Recent Vitals: Last Vital Signs Temp 98.1 F 06/18/19 07:30 Pulse 88 06/18/19 07:30 Resp 18 06/18/19 07:30 BP 130/75 06/18/19 06:57 Pulse Ox 95 06/18/19 07:30 H&P (including ROS) documented in medical record: Yes Previous reaction to sedatives/anesthetics: No Dietary Status: NPO after Midnight ASA Classification *see protocol: CLASS II-Mild systemic disease Plan of Care: Pt appropriate candidate for procedure/moderate/conscious sedation, Risks/benefits of procedure/sedation discussed w/ patient/family Cardiac Registry (Cardio Only) - Functional Capacity Functional Capacity: >=4 METS with symptoms - Clincal Frailty Scale Clinical Frailty Scale: Managing Well
[2019-06-18] MEDS: Pregabalin 75 MG CAPSULE PO SCH (08:54)
[2019-06-18] MEDS: Lisinopril 20 MG TABLET PO SCH (08:54)
[2019-06-18] MEDS ORDERED: 0.9 % Sodium Chloride 2,000 ML ONE (09:45)
[2019-06-18] MEDS ORDERED: *HR* Heparin 10,000 UNIT/10 ML VIAL ONE (09:45)
[2019-06-18] MEDS ORDERED: ISOVUE-370 200 ML INFUS..BTL ONE (09:45)
[2019-06-18] MEDS ORDERED: Heparin 1,000 UNITS/500 mL 500 ML ONE (09:45)
[2019-06-18] MEDS ORDERED: Nitroglycerin 1,000 MCG/10 ML VIAL IV ONE (09:45)
[2019-06-18] MEDS ORDERED: *HR* Midazolam HCl 2 MG/2 ML VIAL ONE ×2 (10:03→10:21)
[2019-06-18] MEDS ORDERED: *HR* FentaNYL (PF) 100 MCG/2 ML VIAL ONE (10:03)
[2019-06-18] MEDS ORDERED: Verapamil 5 MG/2 ML VIAL ONE (10:07)
--- NOTE | 2019-06-18 10:38 | Event Note ---
Date of Encounter: 06/18/19 Time of Encounter: 10:40 - Cardiology Event Note prelim lhc - essentially normal coronaries. Transradial, stable for dc from cardio standpoint
--- NOTE | 2019-06-18 10:45 | Invasive Diagnostic Lab Proc ---
Name: Tana Baez Date of Study: 06/18/2019 Date: 1960 Ht: 68.1in Medical Record#: [id number] Age: 58 Wt: 224.87lb Gender: Female BSA: 2.15 Order #: [id number] BMI: 34.08 Physicians Procedure Physician: Ash Campbell MD, [facility] Referring MD: Referring MD: Staff Name Position [facility] Monitor 10:05 AM Vivian Segundo RT (R) Scrub 10:05 AM Mary Mahoney RT (R) Scrub 10:05 AM Soraya Priest RN Supervisor Frame Assembly 10:05 AM Procedures Performed Procedure L HRT ARTERY/VENTRICLE ANGIO Pre-Procedure Checklist Informed consent is complete signed and on chart. H&P is on chart. ID band is on and ID verified with patient. Patient NPO for procedure The procedure was described for the patient and questions were answered. ECG is on chart. Plan of Care Patient will tolerate the procedure without complications. Adequate level of comfort will be maintained. Hemodynamics will remain stable Patient will recover from procedure without complications. Respiratory function will be maintained. Cardiac rhythm will remain stable. Patient temperature will be maintained. Patient and/or family have verbalized understanding of the procedure. Patient Education Chief Complaint/Reason for Test: Cardiac Cath Developmental Category: Adult (18-64 years) Developmentally Appropriate for Age: Yes Learning Barriers: None Education Needs: Procedure Education Method: Verbal Information Taught: Cardiac Cath Educational Evaluation: Able to repeat information Intravenous Access Time IV Size Location DC'd Fluid/Drip Rate Units RN 20g 1 1/" Patent On Arrival 0.9NaCl Allergies NSAIDS (Non-Steroidal Anti-Inflamma Penicillins codeine hydrocodone aspirin morphine Vital Signs Time BP (mmHg) HR (bpm) O2 Sat. RR (bpm) LOC 10:09 AM / % 5 = Fully awake and oriented or at pre-proc level 10:04 AM 127 / 71 90 98 % 18 10:09 AM 112 / 63 85 96 % 17 10:14 AM 106 / 62 84 99 % 23 10:19 AM 116 / 60 86 98 % 13 10:24 AM 111 / 60 85 96 % 13 10:29 AM 111 / 58 88 97 % 32 Procedural Medications Time Medication Dose Units Method Given By 10:06 AM Oxygen 2 L/min nasal cannula Soraya Priest RN 10:06 AM Versed 2 mg Intravenous Soraya Priest RN 10:06 AM Fentanyl 50 mcg Intravenous Soraya Priest RN 10:19 AM Lidocaine 2% 0.5 ml Subcutaneous Ash Campbell MD, [facility] 10:23 AM Heparin 4000 units Nitroglycerin 200 mcg Verapamil 2.5 mg Intraarterial Ash Campbell MD, [facility] 10:23 AM Versed 1 mg Intravenous Soraya Priest RN 10:24 AM Fentanyl 25 mcg Intravenous Soraya Priest RN ASA Classification: CLASS II- Mild systemic disease (i.e. well-controlled diabetes, hypertension, asthma, cigarette smoking) Zhanna Score Preprocedure Postprocedure Activity 2- Moves 4 extremities sustained head lift Activity 2- Moves 4 extremities sustained head lift Circulation 2- SBP +/= 20 points of pre-anesthetic level Circulation 2- SBP +/= 20 points of pre-anesthetic level Consciousness 2- Awake and alert oriented x 3 Consciousness 2- Awake and alert oriented x 3 O2 Saturation 2- Able to maintain O2 satruation of 92% on room air O2 Saturation 2- Able to maintain O2 satruation of 92% on room air Respiratory 2- Able to deep breathe and cough well Respiratory 2- Able to deep breathe and cough well Total Score 10 Total Score 10 Contrast Agent: Isovue Diagnostic Contrast: 39 ml Total Contrast: 39 ml Fluoro Dose: 15 mGy Procedure Log Time Note Enter By 10:03 AM CathStat 10:03 AM Vitals capture started with the following parameters, Patient=Adult, Interval=5 min, Initial Hgjtjkfg=469 mmHg, Deflation Rate=3 mmHg, Cuff placed on Right Arm 10:04 AM HR=90 bpm, VUGB=906/71 mmhg, SpO2=98.0 %, Resp=18 B/min 10:05 AM Pt arrived to [facility]inarian laboratory animal care 2 at 10:05 [facility]avis 10:05 AM Marj Rivera RN Position: Monitor Time in: 10:05 [facility]avis 10:05 AM Vivian Segundo RT (R) Position: Scrub Time in: 10:05 [facility]avis 10:05 AM Mary Mahoney RT (R) Position: Scrub Time in: 10:05 [facility] 10:05 AM Soraya Priest RN Position: Supervisor Frame Assembly Time in: 10:05 [facility] 10:05 AM Patient charges- Angio tray pack, Navilyst 3mm J, Pulse Oximetry and ACIST tubing and transducer [facility] 10:05 AM Physician arrived 10:05 [facility] 10:05 AM Meet and kenton completed kmavis 10:05 AM Sign in performed according to hospital policy. Informed consent was obtained. [facility] 10:05 AM Procedure start 10:05 [facility] 10: AM Time: 10: Oxygen on at 2 L/min per nasal cannula by Soraya Priest RN [facility] : AM Time: : Versed 2 mg Intravenous Given by Soraya Priest RN [facility] 10: AM Time: 10: Fentanyl 50 mcg Intravenous Given by Soraya Priest RN [facility] 10: AM Recorded ECG: HR=90 Condition=Condition 1 10: AM Hair removed from procedure site in procedure lab using clippers. Right wrist and Right groin prepped with Chloraprep by Marj Rivera RN, then patient was draped. Skin intact. [facility] 10: AM HR=85 bpm, SAUU=683/63 mmhg, SpO2=96.0 %, Resp=17 B/min 10: AM Time: 10:09 Patient comfortable and pain free: Yes [facility] 10:09 AM Time: 10:09LOC: 5 = Fully awake and oriented or at pre-proc level [facility] 10:14 AM HR=84 bpm, FUFP=092/62 mmhg, SpO2=99.0 %, Resp=23 B/min 10:17 AM ASA Class CLASS II- Mild systemic disease (i.e. well-controlled diabetes, hypertension, asthma, cigarette smoking) [facility] 10:18 AM Pressure channel 1 zeroed. 10:19 AM HR=86 bpm, UPNK=780/60 mmhg, SpO2=98.0 %, Resp=13 B/min 10:19 AM Time out was performed according to hospital policy. Conscious sedation and anesthesia was achieved (see medication log with in this report above) [facility] 10:20 AM Time: 10:19 0.5 ml Lidocaine 2% to right radial Subcutaneous Given by Ash Campbell MD, [facility] 10:23 AM Access obtained by percutaneous puncture. 6Fr 10cm Terumo Glidesheath sheath placed in right Radial artery. [id number] [facility] 10: AM Time: : Patient given 4,000 units Heparin, 200 mcg Nitroglycerin, and 2.5 mg Verapamil Intraarterial by Ash Campbell MD, [facility]. This is given to reduce risk of vessel spasm and thrombosis. :24 AM Time: : Versed 1 mg Intravenous Given by Soraya Priest RN [facility] : AM Time: : Fentanyl 25 mcg Intravenous Given by Soraya Priest RN [facility] 10:24 AM HR=85 bpm, LHMX=587/60 mmhg, SpO2=96.0 %, Resp=13 B/min 10:24 AM 5Fr TIG catheter inserted over the wire [facility] 10:24 AM 0.035 260cm Navilyst 3mmJ wire [id number] [facility] 10:24 AM wire removed [facility] 10:24 AM Catheter crossed the aortic valve and was selectively placed in the left ventricle. Pressures recorded on pullback for left heart catheterization. [facility] 10:25 AM Pressure channel 1 zero failed. 10:25 AM Pressure channel 1 zeroed. 10:25 AM Bolus angiogram of left Ventricle complete: 10 ml/sec for a total of 30 mls [facility] 10:26 AM Recorded Pressure: LV, Ao, HR=92, Condition=Condition 1 (Left Ventricle) LV 102/18/24, (Aorta) Ao 109/67/84 10:26 AM LCA angiography performed in multiple views. [facility] 10:26 AM Recorded Pressure: Ao, HR=91, Condition=Condition 1 (Aorta) Ao 98/73/84 10:28 AM RCA angiography performed in multiple views. [facility] 10:28 AM Recorded Pressure: Ao, HR=88, Condition=Condition 1 (Aorta) Ao 108/81/93 10:29 AM Coronary Dominance: right [facility] 10:29 AM HR=88 bpm, DSPC=342/58 mmhg, SpO2=97.0 %, Resp=32 B/min 10:29 AM Catheter removed [facility] 10:30 AM Procedure completed at 10:30 06/18/2019 [facility] 10:30 AM Did you address DOLORES flow and Dominance? YesCoronary Dominance: right [facility] 10:31 AM Sign out completed: Radiation Dose 116.10 mGy, 15.4 Gy/cm2 Fluoro Time: 1.2 Isovue 370 - 200ml contrast 39 ml given by Ash Campbell MD, [facility]. Complications: None. The patient was discharged out of the [place] in stable condition. Sedation minutes 25. Cardiac Rehab Consult needed: No. Confirmed administered medications: Yes [facility] 10:31 AM Isovue 370 - 200ml,1 Bottle(s) used. [facility] 10:31 AM Arterial sheath pulled, Vasc Band closure device used and was Successful S/N. [facility] 10:32 AM 11 ml air in Vasc Band. [facility] 10:32 AM Estimated Blood Loss: minimal [facility] 10:32 AM Post ECG NSR [facility] 10:32 AM Post Blood Pressure 111/58 [facility] 10:32 AM 10:32 Post Pulses Rt Radial 1+ [facility] 10:32 AM Information taught Cardiac Cath and Vasc Band [facility] 10:32 AM Education needs Procedure, Plan of Care, and Responsibilities of Patient in Care [facility] 10:32 AM Learning barriers :None [facility] 10:32 AM Education Methods Verbal [facility] 10:32 AM Education evaluation Able to repeat information [facility] 10:33 AM Site status No bleeding/ No Hematoma - Rt Wrist as reported by Mary Mahoney RT (R) at 10:32 [facility] 10:33 AM Plavix, Effient or Brilinta given No [facility] 10:33 AM Delay to floor No [facility] 10:33 AM no family present at this time [facility] 10:33 AM Complications: None [facility] 10:37 AM Report given to Melyssa PENG Pt taken to 3B Room #16. 10:37 [facility]ers 10:37 AM Patient out of room: 10:37 tsoummers Complications Complication None Hemodynamics Pressures Site Systolic/A Wave Diastolic/V Wave Mean LV 102 18 24 AO 109 67 84 AO 98 73 84 AO 108 81 93 Post Procedure Information Blood Pressure: 111/58 mmHg Rhythm: NSR Post procedural instructions were given Closure Device Time Device Success/Fail 06/18/2019 10:30:00 AM Mechanical Compression 11 Site Checks Time Location Status Staff Sheath In? Note 10:32 AM Rt Wrist No bleeding/ No Hematoma Mary Mahoney RT (R) Pulses Time Site Pre-Procedure Post-Procedure Note Bilateral DP & PT 2+ Bilateral radial 2+ 10:32:00 AM Rt Radial 1+ Updated by Marj Rivera RN on 06/18/2019 10:38:52 AM electronically signed on 06/18/2019 10:39:17 AM with status of Final
[2019-06-18 12:20] VITALS: BP 113/74
--- NOTE | 2019-06-18 14:24 | Discharge Summary ---
- NOTES TO OUTPATIENT PROVIDER Notes to Outpatient Provider: Presented with CP underwent cardiac stres stress test - abnormal- cardiac cath - normal coronaries Orders not resulted at time of discharge: Pending orders 06/16/19 12:58 ECG 12 lead ECG [ECG] Stat 06/17/19 05:40 NM harriet perf SPECT multi [NM] Routine 06/17/19 06:00 ECG 12 lead ECG [ECG] AM 0600 06/18/19 00:01 CL Cardiac Catheterization [CL] Routine Date of Encounter: 06/18/19 Time of Encounter: 14:22 - Discharge Diagnosis (1) Chest pain Priority: Primary Status: Acute Qualifiers: Chest pain type: unspecified Qualified Code(s): R07.9 - Chest pain, unspecified (2) Hypothyroid Priority: Secondary Status: Acute Qualifiers: Hypothyroidism type: unspecified Qualified Code(s): E03.9 - Hypothyroidism, unspecified (3) Diabetes Priority: Secondary Status: Acute Qualifiers: Diabetes mellitus type: type 2 Diabetes mellitus intermediate designer insulin use: with [facility] use Diabetes mellitus complication status: with neurologic complications Diabetes mellitus complication detail: with unspecified neuropathy Qualified Code(s): E11.40 - Type 2 diabetes mellitus with diabetic neuropathy, unspecified; Z79.4 - ferry terminal agent (current) use of insulin (4) Hypertension Priority: Secondary Status: Chronic Qualifiers: Hypertension type: unspecified Qualified Code(s): I10 - Essential (primary) hypertension (5) COPD (chronic obstructive pulmonary disease) Priority: Secondary Status: Chronic Qualifiers: COPD type: unspecified COPD Qualified Code(s): J44.9 - Chronic obstructive pulmonary disease, unspecified (6) Lower extremity edema Priority: Secondary Status: Acute Hospital course: Ms. Baez is a 58 year old female past medical history of diabetes type 2 hypertension obesity COPD hyperthyroid rheumatoid arthritis who presented with complaints of shortness of breath bilateral lower extremity edema for 2 months she correlates resistance to new medication Trilisate. The past 2 weeks she has been sprinting intermittent left-sided chest pain that is radiating to her left jaw as well as her left arm. Pain is aggravated with exertion and relieved with rest. Lab work was unremarkable troponins were negative 3 EKG with no ischemia chest x-ray with no acute process patient was given 1 dose of IV Lasix in the ER lower extremity duplex was negative for any DVTs bilaterally patient underwent cardiac stress test which did reveal mild ischemia in the apical mid basal and inferior septum TTE shows preserved EF with no significant valvular disease. Cardiology was consulted and recommended left heart catheter which showed clean coronaries. Patient has been chest pain-free throughout this admission-there is slight edema noted in her lower extremities amlodipine has been stopped. Patient will be discharged home and she will follow-up with her primary care provider as an outpatient. Patient verbalizes understanding - Time Spent with Patient Total time spent providing and/or coordinating discharge services: - Discharge Medications Prescriptions: Continued Tramadol HCl [Ultram] 50 mg PO TID PRN PRN Reason: Pain Omeprazole [PriLOSEC] 20 mg PO DAILY Lisinopril [Zestril] 20 mg PO DAILY Atorvastatin [Lipitor] 40 mg PO HS Pregabalin [Lyrica] 150 mg PO BID Levothyroxine [Synthroid] 100 mcg PO QAM Dulaglutide [Trulicity] 0.75 mg SQ FR Insulin Regular, Human [Humulin R U-500 Kwikpen] 100 units SQ BIDWM Turmeric Root Extract [Turmeric] 500 mg PO DAILY Discontinued Amlodipine Besylate 2.5 mg PO DAILY No Action Cyclobenzaprine [Flexeril] 10 mg PO BID PRN PRN Reason: Muscle Spasm Home Medications: Atorvastatin [Lipitor] 40 mg PO HS 06/16/19 [History] Cyclobenzaprine [Flexeril] 10 mg PO BID PRN 06/16/19 [History] Levothyroxine [Synthroid] 100 mcg PO QAM 06/16/19 [History] Lisinopril [Zestril] 20 mg PO DAILY 06/16/19 [History] Omeprazole [PriLOSEC] 20 mg PO DAILY 06/16/19 [History] Pregabalin [Lyrica] 150 mg PO BID 06/16/19 [History] Tramadol HCl [Ultram] 50 mg PO TID PRN 06/16/19 [History] Dulaglutide [Trulicity] 0.75 mg SQ FR 06/17/19 [History] Insulin Regular, Human [Humulin R U-500 Kwikpen] 100 units SQ BIDWM 06/17/19 [History] Turmeric Root Extract [Turmeric] 500 mg PO DAILY 06/17/19 [History] Allergies/Adverse Reactions: Allergy/AdvReac Type Severity Reaction Status Date / Time aspirin AdvReac See Verified 06/17/19 14:44 Comments celecoxib [From Celebrex] AdvReac Swelling Verified 06/17/19 14:44 of Lip/Tongue/Throat codeine AdvReac Anaphylaxis Verified 06/17/19 14:44 fentanyl AdvReac Vomiting Verified 06/17/19 14:44 hydrocodone [From Vicodin] AdvReac Hallucinati Verified 06/17/19 14:44 ng morphine AdvReac Hallucinati Verified 06/17/19 14:44 ng naproxen AdvReac See Verified 06/17/19 14:44 Comments NSAIDS (Non-Steroidal AdvReac Anaphylaxis Verified 06/17/19 14:44 Anti-Inflamma Penicillins AdvReac Rash Verified 06/17/19 14:44 Date of admission: 06/16/19 16:04 Primary care physician: PIO Gaming Discharging clinician: Carlota Friend Anticipated date of discharge: 06/18/19 - Constitutional Vitals: Temp Pulse Resp BP Pulse Ox 98.6 F 83 18 113/74 95 06/18/19 12:19 06/18/19 12:19 06/18/19 12:19 06/18/19 12:19 06/18/19 11:00 General appearance: Present: A&O X 3 Exam: Skin: Free of rash and discoloration. Eyes: Sclera is white. There is no discharge from eyes. ENMT: Oral/pharyngeal mucosa is normal in appearance. There is no discharge from nose or ears. Respiratory: Normal breath sounds with no crackles and wheezes bilaterally. CV: Heart is regular with no gallop or murmur. GI: Abdomen is flat and soft with no palpable mass or visceromegaly. : There is no tenderness in patient's flanks bilaterally. Neuro exam: He has good strength in upper and lower extremities. He has normal eye movements. Psychiatric: He has normal affect. His thought process is appropriate to the situation. - Patient Status Disposition: Home, Self-Care Condition: Good Functional capacity at discharge: independent ambulation Overall status at discharge: patient is back to baseline - Discharge Instructions Follow Up With: Rae Baez CNP [Primary Care Provider] - 06/21/19 9:15 am - Diet and Activity Activity: increase activity as tolerated Diet: advance to your usual diet
--- NOTE | 2019-06-18 23:49 | Electrocardiograph Report ---
[place] [facility] [facility] Test Date: 2019-06-16 Pat Name: Tana Baez Department: 104 Room: 3B16 Gender: F Boiler Installer: Luisito : 1960 Requested By: [id number] Order Number: [id number] Reading MD: Aristeo Villalta Measurements Intervals [place] Rate: 87 P: 54 [place]: 123 QRS: 41 QRSD: 101 T: 49 QT: 365 QTc: 409 Interpretive Statements SINUS RHYTHM Electronically Signed On 06-18-2019 23:47:53 EDT by Aristeo Villalta
== END 2019-06-18 15:20 | disposition home or self-care (01) ==
LOC: 3BNU 12:30 → EMEROOARM 12:30 → 3BNU 16:34
PROVIDERS: ADMIT Student in an Organized Health Care Education/Training Program; ATTEND Student in an Organized Health Care Education/Training Program